=== PATIENT | female | born 1975 ===

== ENCOUNTER 2022-12-12 05:37 | Emergency (ER) | payer MEDICARE, MEDICAID ==
[2022-12-12] MEDS ORDERED: Alum Hydro/Mag Hydro/Simeth XS 15 ML, Lidocaine 2% 5 ML PO ONE ×2 (06:11)
[2022-12-12] MEDS ORDERED: Aluminum Hydroxide/Magnesium Hydroxide/Simethicone XS Susp 30 ML Cup ONE (06:14)
[2022-12-12 06:29] LABS: BLOOD UREA NITROGEN,BUN 13 mg/dL (7.0-18.0); CARBON DIOXIDE,CO2 24.6 mmol/L (21.0-32.0); CHLORIDE,CL 104 mmol/L (98-107); GLUCOSE RANDOM 130 mg/dL (74-106); LIPASE 72 U/L (73-393); POTASSIUM,K 3.5 mmol/L (3.5-5.1); SODIUM,NA 137 mmol/L (136-145)
[2022-12-12 06:30] LABS: ESTIMATED GFR 108 mL/min (>60)
[2022-12-12] MEDS ORDERED: fentaNYL 50 MCG/ML SDV IVPUSH ONE (08:05)
[2022-12-12] MEDS ORDERED: Ketorolac 30 MG/ML SDV IVPUSH ONE (08:05)
[2022-12-12] MEDS ORDERED: Ondansetron 4 MG/2 ML SDV IVPUSH ONE (08:05)
== END 2022-12-12 10:44 | disposition home or self-care (01) ==
LOC: MW.ED 05:37
DX: K80.20 Calculus of gallbladder without cholecystitis without obstruction (principal)
CPT/HCPCS: 36415; 71045; 76705; 80053; 81001; 83690; 84484; 85025; 93005; 96374; 96375; 99285; A9270; J1885; J2405; J3010; 93010; 99284